=== PATIENT | female | born 1975 | race Two or more races ===

== ENCOUNTER 2016-06-10 08:20 | Emergency (ER) | payer SELFPAY ==
[~2016-06-10] VITALS: Ht 157.5 cm; Wt 82.6 kg
[2016-06-10 08:28] VITALS: BP 135/81
== END 2016-06-10 09:22 | disposition home or self-care (01) ==
LOC: ER 08:24
DX: H65.01 Acute serous otitis media, right ear (principal)
CPT/HCPCS: 99282; A4606; Z7610